=== PATIENT | male | born 1975 | race Caucasian/White ===

== ENCOUNTER 2025-08-25 17:56 | Inpatient (IN) | payer BC, SELFPAY ==
--- NOTE | ~2025-08-25 | CT_ITS ---
EXAMINATION: CT abdomen pelvis w con DATE: 08/25/2025 21:24 INDICATION: Epigastric pain, abdominal distention, bloating and belching. TECHNIQUE: Computed tomography (CT) of the abdomen and pelvis was performed with 100 mL Omnipaque-350 intravenous contrast. Automated exposure control and iterative reconstruction technique were employed. The dose-length product was 704.88 mGy-cm. COMPARISON: None FINDINGS: There are couple <3 mm nodules in the right lower lobe. Heart size is normal. No pericardial or pleural effusion. Diffuse hepatic steatosis with right hepatic lobe predominance. Gallbladder, spleen, bilateral adrenal glands and kidneys are normal. Prominent peripancreatic stranding centered at the head of the pancreas with small amount of nonloculated retroperitoneal fluid extending caudally along the anterior right pararenal space and into the pelvis consistent with acute interstitial pancreatitis. No loculated fluid collections, hemorrhage or nonenhancing regions of pancreatic necrosis. There are few sigmoid diverticula without adjacent comparison to suggest diverticular disease. Small bowel and appendix are normal. Bladder is normal. The region of the prostate is obscured by dense metallic streak artifact related to bilateral total hip arthroplasties. No free intraperitoneal gas or fluid. No pathologically enlarged abdominal or pelvic lymphadenopathy. Moderate to severe disc height loss at L5-S1. Mild spondylosis and more cephalad lumbar and lower thoracic spine. Chronic minimal likely physiologic anterior wedging at T11 and T12. IMPRESSION: 1. Acute interstitial pancreatitis. 2. Diffuse hepatic steatosis. Reviewed, dictated and finalized at location A. LING SUPERVISOR
--- NOTE | ~2025-08-25 | US_ITS ---
ULTRASOUND ABDOMEN LIMITED (RIGHT UPPER QUADRANT) Clinical History: pancreatitis Comparison: CT abdomen and pelvis one day prior Technique: Right upper quadrant sonography Findings: Liver: Enlarged. Echogenic. No intrahepatic biliary ductal dilatation. Normal hepatopedal flow main portal vein. Common Duct: Normal caliber. 5 mm. Gallbladder: No stones. No wall thickening. Focal fatty sparing versus pericholecystic fluid. Pancreas: Obscured by bowel gas. Right kidney: Unremarkable. Retrohepatic IVC: Unremarkable. IMPRESSION: 1. No acute findings. Reviewed, dictated and finalized at location R. URE FRAMER IMPRESSION: 1. No acute findings.
--- OUTSIDE RECORDS SUMMARY | 2025-08-25 17:58 | XMS_ITS ---
Author Organization Unknown ENCOUNTERS Encounter Performer Location Date Diagnosis Diagnosis Status Pre Admit [facility] [address] [place] [id number] *Note: Encounters from your own facility or health system may be excluded. Allergies, Adverse Reactions, Alerts Allergen Type Severity Identification Date Medications Name Date Quantity Days Supplied GPI Number
[2025-08-25 18:02] VITALS: BP 162/95; PULSE 103; RESP 18; TEMP 36.2; O2SAT 98
--- NOTE | 2025-08-25 19:08 | ED_ITS ---
HPI - Abdominal Pain General Chief Complaint: Abdominal Pain Stated Complaint: ABD PAIN X3D BLOATING Time Seen by Provider: 08/25/25 19:05 Source: patient and family ( Gregoria) Mode of arrival: ambulatory Limitations: no limitations History of Present Illness HPI narrative: Patient presents with report of 3-4 days of abdominal pain with distention and bloating. He notes very slight and intermittent nausea but no vomiting and states it is not oswald pain but rather just a feeling of a lot of discomfort. He had antacid as well as Pepcid yesterday and today and also took Pepto-Bismol yesterday and today. He has been urinating all day and trying to maintain his hydration. Last oral intake was approximately 10:00 a.m. when he had some plain oatmeal. He denies any fevers or chills. No previous abdominal surgeries although he did have a colonoscopy in November which was reportedly normal. He does not otherwise follow regularly with a coffee grinder and states that the symptoms have never occurred before. His last bowel movement was today and reportedly normal. He denies any diarrhea, constipation, bloody stools. He has been burping a lot and states that he believes he passed flatus 2 times all day. He is not on anticoagulation. He does not have an appetite which is unusual for him. His pain is approximately 2/10. He feels fatigued. The discomfort started his breast bone and then seemed to settle as epigastrium and has now started to radiate inferiorly. He takes AG1 (a supplement and tried this but without any change). 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 and July 2022 Family History Family History (Updated 08/26/25 @ 04:52 by David Mace RN) Father Hyperlipemia Hypertension Diabetes type 2 Skin cancer Mother Hyperlipemia Hypertension Skin cancer Social History Social History Social History: Resides in [place] Smoking status: Never smoker Alcohol intake: current Substance use: never Substance use type: does not use Lack of Transportation: No Lack of Food: Never True Current Housing: I Have Housing Concerned About Future Housing: No Difficulty Paying Gas/Electric Bills: No Difficulty Paying for Meds: No Currently Unemployed: No Education: Bachelor's Degree Difficulty w/ Childcare or Family Care: No Living arrangements: with family Spiritual care concerns: No Exam 2 Narrative: GENERAL: Well-appearing, well-nourished, and in no acute distress. HEAD: Normocephalic, atraumatic. EYES: Non injected, non icteric ENT: Nares clear, no rhinorrhea or epistaxis. Gross auditory acuity intact. NECK: Supple. No meningismus. CHEST: Speaking in full sentences. No respiratory distress. HEART: Mildly tachycardic rate and rhythm. ABDOMEN: Distended but soft. No rigidity or guarding. Not peritoneal EXTREMITIES: Normal range of motion. No lower extremity edema. SKIN: Warm, dry, no rash. NEURO: No focal deficits. Alert and oriented. Answering questions. Following commands. Normal speech without aphasia or dysarthria. Observed ambulating from the bathroom with steady gait. : Urine in collection container at bedside is dark/orange PSYCH: Normal mood and affect. Course Vital Signs Vital signs: Vital Signs Temperature 97.2 F L 08/25/25 18:02 Pulse Rate 103 H 08/25/25 18:02 Respiratory Rate 18 08/25/25 18:02 Blood Pressure 162/95 H 08/25/25 18:02 Pulse Oximetry 98 08/25/25 18:02 Oxygen Delivery Room Air 08/25/25 18:02 Temperature 97.1 F L 08/26/25 04:35 Pulse Rate 91 08/26/25 04:35 Respiratory Rate 16 08/26/25 04:35 Blood Pressure 152/82 H 08/26/25 04:35 Pulse Oximetry 97 08/26/25 04:35 Oxygen Delivery Room Air 08/26/25 05:39 MDM MDM Narrative Medical decision making narrative: 50-year-old male presents with abdominal pain and bloating of 3-4 days duration. Symptoms started at epigastrium and have been radiating inferiorly. In the emergency department he is afebrile with vital signs notable for hypertension and mild tachycardia. Simethicone and Reglan ordered as well as CT abdomen /Pelvis. Mild leukocytosis. Urinalysis with 1+ ketonuria and microscopic hematuria. 500cc IV fluids ordered. There is a delay in obtaining lab results as it apparently hemolyzes multiple times. Normal renal function. Mild hyponatremia. Mild Hyperglycemia wo anion gap or acidosis. Lipase is 1234, consistent with acute pancreatitis. Transaminitis with no prior for comparison. Pseudo hypocalcemia as it corrects to normal, 8.6 in the setting of his hypoalbuminemia. Additional 1L fluids ordered as is 2mg morphine. CT as below (there is significant delay in obtaining interpretation from [facility], multiple phone calls to rf test technician/department were made). RUQ US ordered for tomorrow morning although normal on CT. Patient denies any previous history of pancreatitis. He does note that he has been drinking alcohol recently. Discussed with Dr Paredes who accepts admission. IV fluids ordered at 200cc/hr. Differential Diagnosis Differential Diagnosis: Differential diagnostic considerations for acute abdominal pain?include surgical abdominal etiology, ischemic bowel, , gastritis, PUD, gastroenteritis, cardiac etiology, appendicitis, diverticulitis, bowel obstruction, pancreatitis, constipation. Less likely abdominal aortic aneurysm, kidney stone. Lab Data MDM Lab Attestation statement: I personally reviewed the patient's lab results. Lab results narrative: lactic acid normal 08/25/25 19:31 08/25/25 21:46 Labs: Lab Results 08/25/25 08/25/25 08/25/25 Range/Units 19:18 19:31 21:18 WBC 13.2 H (4.5-10.0) K/mm3 RBC 4.19 L (4.6-6.20) M/mm3 Hgb 14.0 (14.0-18.0) g/dL Hct 39.0 L (42.0-52.0) % MCV 93.1 (80-100) fl MCH 33.4 (26-34) pg MCHC 35.9 (32-36) g/dl RDW 13.2 (11.5-14.5) % Plt Count 157 (150-375) k/mm3 MPV 11.5 H (7.4-10.4) fl Immature Gran % (Auto) 0.6 H (0-0.5) % Neut % (Auto) 86.9 H (45.5-73.1) % Lymph % (Auto) 7.3 L (18.3-44.2) % [place] % (Auto) 3.2 (2.6-8.5) % Eos % (Auto) 1.7 (0-4.4) % Baso % (Auto) 0.3 (0.2-1.2) % Lymph # (Auto) 0.96 (0.9-3.2) K/mm3 [place] # (Auto) 0.4 (0.1-0.6) K/mm3 Eos # (Auto) 0.2 (0-0.3) K/mm3 Baso # (Auto) 0.0 (0.0-0.1) K/mm3 Abs Immat Gran (auto) 0.08 H (0.00-0.031) K/mm3 Absolute Neuts (auto) 11.5 H (1.3-6.7) K/mm3 Absolute Nucleated RBC 0.000 (0.0-0.012) K/mm3 Nucleated RBC % 0.0 (0.0-0.2) % % Immature Plt Fraction 5.8 (0.9-11.2) % Sodium (137-145) mmol/L Potassium (3.4-5.0) mmol/L Chloride (98-107) mmol/L Carbon Dioxide (22-30) mmol/L Anion Gap (4-12) mmol/L BUN (9-20) mg/dL Creatinine 0.60 L (0.8-1.5) mg/dL Estim Creat Clear Calc 121 ml/min Estimated GFR > 60 (59 - ) Glucose (65-110) mg/dL Lactic Acid 1.0 (0.7-2.0) mmol/L Calcium (8.4-10.2) mg/dL Magnesium (1.6-2.3) mg/dL Total Bilirubin (0.2-1.3) mg/dL AST (17-59) U/L ALT (6-50) U/L Alkaline Phosphatase (38-126) U/L Total Protein (6.3-8.2) g/dL Albumin (3.5-5.1) g/dL Lipase (23-300) U/L Urine Color Dark yellow (Yellow) Urine Appearance Clear (Clear) Urine pH 7.0 (5.0-9.0) Ur Specific [place] 1.010 (1.001-1.035) Urine Protein Trace (Negative) mg/dL Urine Glucose (UA) Negative (Negative) mg/dL Urine Ketones 1+ H (Negative) mg/dL Ur Blood (Man) Negative (Negative) Urine Nitrate Negative (Negative) Urine Bilirubin Negative (Negative) Urine Urobilinogen 1.0 (<2.0) mg/dL Leukocyte Esterase Rfl Negative (Negative) HARMEET/UL Urine RBC 3-5 H (0-2) /hpf Urine WBC 0-5 (0-3) /hpf Ur Squamous Epith Cells None seen (Few) /hpf Urine Bacteria None seen /hpf Urine Casts 0-2 08/25/25 Range/Units 21:46 WBC (4.5-10.0) K/mm3 RBC (4.6-6.20) M/mm3 Hgb (14.0-18.0) g/dL Hct (42.0-52.0) % MCV (80-100) fl MCH (26-34) pg MCHC (32-36) g/dl RDW (11.5-14.5) % Plt Count (150-375) k/mm3 MPV (7.4-10.4) fl Immature Gran % (Auto) (0-0.5) % Neut % (Auto) (45.5-73.1) % Lymph % (Auto) (18.3-44.2) % [place] % (Auto) (2.6-8.5) % Eos % (Auto) (0-4.4) % Baso % (Auto) (0.2-1.2) % Lymph # (Auto) (0.9-3.2) K/mm3 [place] # (Auto) (0.1-0.6) K/mm3 Eos # (Auto) (0-0.3) K/mm3 Baso # (Auto) (0.0-0.1) K/mm3 Abs Immat Gran (auto) (0.00-0.031) K/mm3 Absolute Neuts (auto) (1.3-6.7) K/mm3 Absolute Nucleated RBC (0.0-0.012) K/mm3 Nucleated RBC % (0.0-0.2) % % Immature Plt Fraction (0.9-11.2) % Sodium 133 L (137-145) mmol/L Potassium 4.2 (3.4-5.0) mmol/L Chloride 105 (98-107) mmol/L Carbon Dioxide 25 (22-30) mmol/L Anion Gap 3 L (4-12) mmol/L BUN 2 L (9-20) mg/dL Creatinine 0.56 L (0.8-1.5) mg/dL Estim Creat Clear Calc 129 ml/min Estimated GFR > 60 (59 - ) Glucose 145 H (65-110) mg/dL Lactic Acid (0.7-2.0) mmol/L Calcium 7.7 L (8.4-10.2) mg/dL Magnesium 1.7 (1.6-2.3) mg/dL Total Bilirubin 2.2 H (0.2-1.3) mg/dL AST 310 H (17-59) U/L ALT 215 H (6-50) U/L Alkaline Phosphatase 105 (38-126) U/L Total Protein 5.8 L (6.3-8.2) g/dL Albumin 2.9 L (3.5-5.1) g/dL Lipase 1234 H (23-300) U/L Urine Color (Yellow) Urine Appearance (Clear) Urine pH (5.0-9.0) Ur Specific [place] (1.001-1.035) Urine Protein (Negative) mg/dL Urine Glucose (UA) (Negative) mg/dL Urine Ketones (Negative) mg/dL Ur Blood (Man) (Negative) Urine Nitrate (Negative) Urine Bilirubin (Negative) Urine Urobilinogen (<2.0) mg/dL Leukocyte Esterase Rfl (Negative) HARMEET/UL Urine RBC (0-2) /hpf Urine WBC (0-3) /hpf Ur Squamous Epith Cells (Few) /hpf Urine Bacteria /hpf Urine Casts Imaging Data Radiologist's impression: ITS Impressions Abdomen/Pelvis CT 08/26/25 09:31 IMPRESSION: 1. Acute interstitial pancreatitis. 2. Diffuse hepatic steatosis. CT Stat Rad abd & Pelvis with contrast: Acute interstitial edematous pancreatitis. No evidence of parenchymal necrosis or denies collection. Associated ascites tracking inferiorly. Reactive inflammation of the duodenum. Hepatomegaly and steatosis. Incidental findings: Gallbladder, spleen, adrenal glands, kidneys are unremarkable. Normal appendix. No bowel obstruction. Portable pelvic organs. Bilateral total hip arthroplasties. No acute osseous findings. ECG Data EKG #1: Attestation: I personally reviewed and interpreted this ECG as follows: ECG completion date: 08/25/25 ECG completion time: 19:43 Prior ECG tracings: not available for review (no prior for comparison) Interpretation: Normal sinus rhythm at a rate of 93 beats per minute. NV interval 144. QRS 112. QT /QTC 341/424. Poor R-wave progression across the precordial leads. T- wave flattening in 3 but upright in contiguous inferior leads. No other T-wave inversions. Borderline left axis deviation given positive in 1 and negative in 3 and AVF and trending towards negative in 2. Moderate intraventricular conduction delay. Discharge Plan Discharge Clinical Impression: Leukocytosis, Bloated abdomen, Abdominal discomfort, epigastric, Hematuria, microscopic, Hyponatremia, Hyperglycemia, Transaminitis, Hypoalbuminemia, Interstitial pancreatitis, Hepatic steatosis Patient Disposition: Still a Patient Condition: Stable Time of Disposition: 02:28
--- NOTE | 2025-08-25 19:16 | ECG_ITS ---
Test Date: 2025-08-25 19:43:25 Measurements Intervals Venus Rate: 93 P: 57 SC: 144 QRS: -27 QRSD: 112 T: 33 QT: 341 QTc: 424 Interpretive Statements SINUS RHYTHM DELAYED PRECORDIAL R/S TRANSITION BORDERLINE ECG No previous ECG available for comparison Electronically Signed On 08-25-2025 20:35:28 WATER RESTORATION TECHNICIAN by Mario Tafoya D.O.
[2025-08-25 19:34] LABS: Add Urine Microscopic? YES; Appearance Urine Clear (Clear); Glucose Urine UA Negative (Negative); Leukocyte Esterase Ur Negative LEU/UL (Negative); Nitrate Urine Negative (Negative); Non Pathogenic Casts 0-2; Specific Grav Ur 1.010 (1.001-1.035)
[2025-08-25 19:42] LABS: Hematocrit 39.0 % (42.0-52.0); Hemoglobin 14.0 g/dL (14.0-18.0); Immature Granulocyte Percent A 0.6 % (0-0.5); Immature Platelet Fraction Pct 5.8 % (0.9-11.2); Lymphocytes Absolute Auto 0.96 K/mm3 (0.9-3.2); Mean Corpuscular HGB Conc 35.9 g/dl (32-36); Mean Corpuscular Hemoglobin 33.4 pg (26-34); Mean Corpuscular Volume 93.1 fl (80-100); Nucleated Red Blood Cells Absolute Auto 0.000 K/mm3 (0.0-0.012); Nucleated Red Blood Cells Perc 0.0 % (0.0-0.2); Platelet Count Result 157 k/mm3 (150-375); Red Blood Count 4.19 M/mm3 (4.6-6.20); White Blood Count 13.2 K/mm3 (4.5-10.0)
[2025-08-25] MEDS: SODIUM CHLORIDE 0.9% IV 500 ML 999 ML IV CONT (20:20)
[2025-08-25] MEDS: SIMETHICONE 125 MG CHEW TAB PO (20:21)
[2025-08-25] MEDS: METOCLOPRAMIDE HCL INJ 10 MG/2 ML VIAL 5 MG IV PUSH (20:23)
--- NOTE | 2025-08-25 21:06 | PC.NURSE ---
Lab reports hemolysis multiple times with lab draw. This RN re-jabari and sent labs at this time. Extra tube obtained and CT called for POC creatinine due to delay in imaging. Pt and significant other at bedside updated. Pt's stretcher laid back for comfort. Call light in reach.
[2025-08-25 21:20] LABS: Estimated CRCL calculation 121 ml/min; Estimated Glomerular Filt Rate > 60
[2025-08-25 22:10] LABS: Alanine Aminotransferase 215 U/L (6-50); Albumin Level 2.9 g/dL (3.5-5.1); Alkaline Phosphatase 105 U/L (38-126); Anion Gap 3 mmol/L (4-12); Aspartate Amino Transferase 310 U/L (17-59); Bilirubin,Total 2.2 mg/dL (0.2-1.3); Blood Urea Nitrogen 2 mg/dL (9-20); Calcium 7.7 mg/dL (8.4-10.2); Carbon Dioxide 25 mmol/L (22-30); Chloride 105 mmol/L (98-107); Estimated CRCL calculation 129 ml/min; Estimated Glomerular Filt Rate > 60; Glucose 145 mg/dL (65-110); Lipase 1234 U/L (23-300); Magnesium 1.7 mg/dL (1.6-2.3); Sodium 133 mmol/L (137-145); Total Protein 5.8 g/dL (6.3-8.2)
[2025-08-25 22:11] LABS: Potassium 4.2 mmol/L (3.4-5.0)
[2025-08-25] MEDS: SODIUM CHLORIDE 0.9% IV 1,000 ML 999 ML IV CONT (22:54)
[2025-08-25 22:56] VITALS: BP 136/81; PULSE 87; RESP 16; O2SAT 96
[2025-08-25] MEDS: MORPHINE SULFATE (*CRX) 4 MG/ML INJ 2 MG IV PUSH (23:41)
[2025-08-26] VITALS (12 sets, daily range): BP systolic 140–153; BP diastolic 82–94; PULSE 86–94; RESP 16–20; TEMP 36.2–36.7; O2SAT 94–98
[2025-08-26] MEDS: SODIUM CHLORIDE 0.9% IV 1,000 ML 200 ML IV CONT ×4 (02:39→20:58)
--- NOTE | 2025-08-26 04:01 | WPCEDHO ---
ED Hand Off Checklist All vitals saved: Yes IV Site documented: Yes All med administrations documented: Yes Triage Note Triage Note To ed with c/o abd pain and 08/25/25 18:02 bloating for the past 3 days. Nausea today. Last BM was today and normal for him. Allergies celecoxib (From Celebrex) Allergy (Intermediate, Verified 08/25/25 19:39) Hives Active Medications including assessments/comments Sodium Chloride (Normal Saline Iv) 1,000 mls @ 200 mls/hr IV CONT .Q5H PERRI Last Admin: 08/26/25 02:39 Dose: 200 mls/hr Documented By: GUILLERMO Infusion/Titration Document 08/26/25 02:39 GUILLERMO (Rec: 08/26/25 02:39 GUILLERMO [id number]) Intake IV Site Peripheral Access Right Forearm Container Volume 1,000 Waste Amount 0 Dosing Infusion Rate 200 Cumulative Dose Not Applicable Increase/Decrease Started Elapsed Time Elapsed Time ( 0m minutes) Administered/Completed Medications Discontinued Medications Sodium Chloride (Normal Saline Iv) 500 mls @ 999 mls/hr IV CONT .Q31M STA Stop: 08/25/25 20:29 Last Infusion: 08/25/25 21:05 Dose: Infused Documented By: Admin: 08/25/25 20:20 Dose: 999 mls/hr Documented By: ARCHIE Sodium Chloride (Normal Saline Iv) 1,000 mls @ 999 mls/hr IV CONT .Q1H1M STA Stop: 08/25/25 23:16 Last Infusion: 08/26/25 00:06 Dose: Infused Documented By: Admin: 08/25/25 22:54 Dose: 999 mls/hr Documented By: ARCHIE Metoclopramide HCl (Metoclopramide Hcl Inj 10 Mg/2 Ml Vial) 5 mg IV PUSH ONCE STA Stop: 08/25/25 19:16 Last Admin: 08/25/25 20:23 Dose: 5 mg Documented By: ARCHIE Morphine Sulfate (Morphine Sulfate (*Crx) 4 Mg/Ml Inj) 2 mg IV PUSH ONCE ONE Stop: 08/25/25 22:45 Last Admin: 08/25/25 23:41 Dose: 2 mg Documented By: GUILLERMO Simethicone (Simethicone 125 Mg Chew Tab) 125 mg PO ONCE STA Stop: 08/25/25 19:15 Last Admin: 08/25/25 20:21 Dose: 125 mg Documented By: ARCHIE Notes 08/25/25 21:06 Nurse Note by Ying Robledo Lab reports hemolysis multiple times with lab draw. This RN re-jabari and sent labs at this time. Extra tube obtained and CT called for POC creatinine due to delay in imaging. Pt and significant other at bedside updated. Pt's stretcher laid back for comfort. Call light in reach. Initialized on 08/25/25 21:06 - END OF NOTE Interventions/Assessments IV / Saline Lock, Insert Start: 08/25/25 18:45 Freq: STAT Status: Active Protocol: Document 08/25/25 19:37 KJT (Rec: 08/25/25 19:37 KJT [id number]) IV Assessment Peripheral Access Right Forearm IV Catheter Access Initiated IV Insertion Date 08/25/25 IV Insertion Time 19:37 Catheter Gauge 18 IV Insertion 1 Attempts Ultrasound Used for No Placement IV Site Assessment WNL IV Care and WNL Maintenance PA: Gastrointestinal Assessment Start: 08/25/25 17:58 Freq: Status: Active Protocol: Document 08/25/25 22:57 ARCHIE (Rec: 08/25/25 22:59 ARCHIE [id number]) GI Assessment Gastrointestinal Appetite Changes,Belching,Bloating,Hiccups,Pain Symptoms Description Soft Last Vital Signs Temperature 97.6 F 08/26/25 03:54 Pulse Rate 94 08/26/25 03:54 Respiratory Rate 18 08/26/25 03:54 Pulse Oximetry 94 08/26/25 03:54 Blood Pressure 148/93 H 08/26/25 03:54 Blood Pressure Mean 111 08/26/25 03:54 Blood Pressure Position Sitting 08/25/25 22:56 Oxygen Delivery Room Air 08/25/25 18:02 Weight 82.6 kg 08/25/25 18:02 Last Result - Abnormals Only WBC 13.2 K/mm3 (4.5-10.0) H 08/25/25 19:31 RBC 4.19 M/mm3 (4.6-6.20) L 08/25/25 19:31 Hct 39.0 % (42.0-52.0) L 08/25/25 19:31 MPV 11.5 fl (7.4-10.4) H 08/25/25 19:31 Immature Gran % (Auto) 0.6 % (0-0.5) H 08/25/25 19:31 Neut % (Auto) 86.9 % (45.5-73.1) H 08/25/25 19:31 Lymph % (Auto) 7.3 % (18.3-44.2) L 08/25/25 19:31 Abs Immat Gran (auto) 0.08 K/mm3 (0.00-0.031) H 08/25/25 19:31 Absolute Neuts (auto) 11.5 K/mm3 (1.3-6.7) H 08/25/25 19:31 Sodium 133 mmol/L (137-145) L 08/25/25 21:46 Anion Gap 3 mmol/L (4-12) L 08/25/25 21:46 BUN 2 mg/dL (9-20) L 08/25/25 21:46 Creatinine 0.56 mg/dL (0.7-1.3) L 08/25/25 21:46 Glucose 145 mg/dL (65-110) H 08/25/25 21:46 Calcium 7.7 mg/dL (8.4-10.2) L 08/25/25 21:46 Total Bilirubin 2.2 mg/dL (0.2-1.3) H 08/25/25 21:46 AST 310 U/L (17-59) H 08/25/25 21:46 ALT 215 U/L (6-50) H 08/25/25 21:46 Total Protein 5.8 g/dL (6.3-8.2) L 08/25/25 21:46 Albumin 2.9 g/dL (3.5-5.1) L 08/25/25 21:46 Lipase 1234 U/L (23-300) H 08/25/25 21:46 Urine Ketones 1+ mg/dL (Negative) H 08/25/25 19:18 Urine RBC 3-5 /hpf (0-2) H 08/25/25 19:18 Most Recent Suicide Severity Rating Suicide Severity Rating NO RISK INDICATED 08/25/25 18:02
[2025-08-26] MEDS: ACETAMINOPHEN 325 MG TABLET 650 MG PO ×4 (05:07→20:59)
--- NOTE | 2025-08-26 05:45 | PC.NURSE ---
Notified Dr. Paredes regarding New Sepsis Risk. No new orders given.
--- NOTE | 2025-08-26 06:44 | P.HP_ITS ---
H&P: HPI History of Present Illness Date/Time: 08/26/25 06:44 Chief Complaint: epigastric abdominal pain Narrative: Patient is a 50 yo male with no significant past medical history who presented to the ER with complaints of epigastric abdominal pain, nausea. History is obtained from patient as well as at bedside. Patient states his symptoms began about 5 days ago. Describes the pain as a sharp/bloating feeling that started in his epigastrium/substernal area and now has moved to his right upper quadrant. Denies radiation to the back or shoulder. Currently rates the pain about 3/10 in severity however states he does have a high pain tolerance. Has associated nausea with no vomiting. Also reported increased belching. Last bowel movement was yesterday which was a small formed stool. Reports a low- grade fever yesterday associated with chills. Currently denies chest pain, shortness of breath, nausea, dysuria. He does admit to eating more rich/fatty meals over the last couple of weeks due to the holidays and work events. Also admits to heavier alcohol use over the last 6-8 weeks stating he drinks about 3 shots of scotch daily. Also reported he started a new [facility] testosterone boosting supplement in the last 2 months. No other new medications. Denies smoking or other drug use. Denies prior history of pancreatitis or gallbladder issues. Pain has improved with IV fluids, NPO status and IV morphine. In the ED, WBC 13.2, sodium 133, calcium 7.7, T bili 2.2, AST 310, ALT 215, albumin 2.9, lipase 1234. UA with 1+ ketones, 3-[address] A/P shows hepatic steatosis and acute interstitial pancreatitis. Patient admitted for further evaluation and management of acute pancreatitis. Review of Systems Review of Systems: All systems reviewed & are unremarkable except as noted in HPI and below [facility] Surgical History Surgical History History of colonoscopy November 2024 H/O bilateral hip replacements January 2022 and July 2022 Family History Family History (Updated 08/26/25 @ 04:52 by David Mace RN) Father Hyperlipemia Hypertension Diabetes type 2 Skin cancer Mother Hyperlipemia Hypertension Skin cancer Social History Social History Social History: Resides in [place] Smoking status: Never smoker Alcohol intake: current Substance use: never Substance use type: does not use Lack of Transportation: No Lack of Food: Never True Current Housing: I Have Housing Concerned About Future Housing: No Difficulty Paying Gas/Electric Bills: No Difficulty Paying for Meds: No Currently Unemployed: No Education: Bachelor's Degree Difficulty w/ Childcare or Family Care: No Living arrangements: with family Spiritual care concerns: No Meds Home Medications and Allergies Home Medications ?Medication ?Instructions ?Recorded ?Confirmed ?Type allopurinol 300 mg tablet 300 mg PO DAILY 08/26/25 History finasteride 1 mg tablet 1 mg PO DAILY 08/26/2508/26 History minoxidil 2.5 mg tablet 2.5 mg PO DAILY 08/26/25 History zolpidem 5 mg tablet (Ambien) 5 mg PO HS 08/26/2508/02 History Allergies Allergy/AdvReac Type Severity Reaction Status Date / Time celecoxib (From Celebrex) Allergy Intermediate Hives Verified 08/26/25 04:38 Vital Signs Vital Signs - 24 hr 08/25/25 18:02 08/25/25 22:56 08/26/25 00:12 Temperature 97.2 F L Pulse Rate 103 H 87 Respiratory Rate 18 16 Blood Pressure 162/95 H 136/81 Pulse Oximetry 98 96 95 Oxygen Delivery Room Air 08/26/25 00:15 08/26/25 00:31 08/26/25 00:53 Temperature Pulse Rate Respiratory Rate Blood Pressure Pulse Oximetry 95 95 95 Oxygen Delivery 08/26/25 01:01 08/26/25 01:27 08/26/25 02:45 Temperature Pulse Rate 86 90 Respiratory Rate 18 20 Blood Pressure 142/94 H 140/86 Pulse Oximetry 95 97 95 Oxygen Delivery 08/26/25 03:54 08/26/25 04:03 08/26/25 04:35 Temperature 97.6 F 98.0 F 97.1 F L Pulse Rate 94 93 91 Respiratory Rate 18 18 16 Blood Pressure 148/93 H 146/93 H 152/82 H Pulse Oximetry 94 96 97 Oxygen Delivery 08/26/25 05:39 Temperature Pulse Rate Respiratory Rate Blood Pressure Pulse Oximetry Oxygen Delivery Room Air Exam Narrative: General: NAD Eyes: EOMI ENT: neck supple Cardiovascular: Regular rate and rhythm Respiratory: Clear to auscultation, respirations even and unlabored on RA Gastrointestinal: moderately distended, mild tenderness in the epigastrium and RUQ. No rebound or guarding. Negative Paige's sign. Genitourinary: no suprapubic tenderness Musculoskeletal: No edema Skin: warm, dry Neuro: Alert. Psych: Mood appropriate Results Labs Labs: Short CBC 08/25/25 Range/Units 19:31 WBC 13.2 H (4.5-10.0) K/mm3 Hgb 14.0 (14.0-18.0) g/dL Hct 39.0 L (42.0-52.0) % Plt Count 157 (150-375) k/mm3 BMP 08/25/25 08/25/25 21:18 21:46 Sodium 133 L Potassium 4.2 Chloride 105 Carbon Dioxide 25 BUN 2 L Creatinine 0.60 L 0.56 L Glucose 145 H Calcium 7.7 L Liver Function 08/25/25 Range/Units 21:46 Total Bilirubin 2.2 H (0.2-1.3) mg/dL AST 310 H (17-59) U/L ALT 215 H (6-50) U/L Alkaline Phosphatase 105 (38-126) U/L Albumin 2.9 L (3.5-5.1) g/dL Urine 08/25/25 Range/Units 19:18 Urine Color Dark yellow (Yellow) Urine Appearance Clear (Clear) Urine pH 7.0 (5.0-9.0) Ur Specific [place] 1.010 (1.001-1.035) Urine Protein Trace (Negative) mg/dL Urine Glucose (UA) Negative (Negative) mg/dL Quality VTE Prophylaxis VTE prophylaxis: mechanical ordered Assessment and Plan Assessment and plan (1) Acute pancreatitis: Code(s): K85.90 - Acute pancreatitis without necrosis or infection, unspecified Assessment and Plan: - presented with epigastric abdominal pain, nausea/vomiting - lipase 1234. Elevated LFTs as below - CT A/P with hepatic steatosis, acute interstitial pancreatitis - suspect alcoholic vs. gallstone pancreatitis - continue aggressive IV fluids - NPO with ice chips - PRN pain control and antiemetics - RUQ US pending. May benefit from MRCP. - GI consulted, appreciate recs (2) Transaminitis: Code(s): R74.01 - Elevation of levels of liver transaminase levels Status: Acute Assessment and Plan: - t bili 2.2, AST 310, ALT 215. Recheck pending. - check hepatitis panel, GGT - could be related to alcohol versus obstructive - RUQ US pending. May benefit from MRCP (3) Leukocytosis: Code(s): D72.829 - Elevated white blood cell count, unspecified Status: Acute Assessment and Plan: - WBC 13 - likely related to acute pancreatitis, no signs of bacterial process - monitor off antibiotics (4) Gout: Code(s): M10.9 - Gout, unspecified Status: Acute Assessment and Plan: - hold allopurinol while NPO (5) Insomnia: Code(s): G47.00 - Insomnia, unspecified Status: Acute Assessment and Plan: - hold ambien while NPO Plan DVT prophylaxis: SCDs Code status: full code, confirmed on admit Dispo: home pending clinical course Prior Studies I have reviewed the following patient records and this information was taken into consideration when formulating the assessment and plan.: previous labs Consultations Consultations: I have discussed the care of this pt with the consulting providers. (JILL Vazquez [employer]) Hospitalist MIPS Advance Care Plan I have confirmed that the patient's Advanced Care Plan is present, code status is documented, or surrogate decision maker is listed in patient medical record.: Yes Medication Reconciliation I have utilized all available resources to obtain, update and review the pat ients current medications (includes all prescriptions, OTC, herbals, cannabis, and nutritional supplements).: Yes The patient is not eligible for med reconciliation; the patient is in a emergent medical situation where delaying treatment would jeopardize the patients health.: No
--- NOTE | 2025-08-26 10:35 | WPDGICN ---
Assessment and Plan Assessment and plan (1) Interstitial pancreatitis: Code(s): K86.1 - Other chronic pancreatitis Status: Acute (2) Elevated LFTs: Code(s): R79.89 - Other specified abnormal findings of blood chemistry Status: Acute (3) Decreased appetite: Code(s): R63.0 - Anorexia Status: Acute (4) Epigastric pain: Code(s): R10.13 - Epigastric pain Status: Acute (5) Hepatic steatosis: Code(s): K76.0 - Fatty (change of) liver, not elsewhere classified Status: Acute (6) Constipation: Qualifiers: Constipation type: unspecified constipation type Qualified Code(s): K59.00 - Constipation, unspecified Code(s): K59.00 - Constipation, unspecified Status: Acute (7) Bloated abdomen: Code(s): R14.0 - Abdominal distension (gaseous) Status: Acute Plan 1. Pancreatitis /elevated LFT's/ abdominal pain/appetite loss: Patient with complaints of epigastric pain that moved to his lower abdomen, lower pain and was more associated with constipation and bloating. Prior to admission the patient had tried Pepcid in Pepto-Bismol without any significant change in symptoms. Patient admits to appetite loss that has been occurring since 19/12. He states that yesterday all he had to eat was a small bowl of cereal. Previous complaints of epigastric pain has resolved since admission. CT on admission showed acute interstitial pancreatitis. Ultrasound done today showed liver enlargement but no intrahepatic biliary dilation, CBD normal at 5 mm. Pancreas was not visualized due to it being obscured by bowel gas. LFT's elevated but relatively stable since admission showing total bilirubin 2.2-->2.3, AST 310--> 287, Alk-Phos 215-->101. Hepatitis panel negative. Lipase on admission yesterday at 1234. Symptoms that would be present with pancreatitis have resolved and his main complaints in bloating. He denies any recent medication changes other than since starting [employer] that he has been using intermittently over the past few months. Recheck lipase and LFT's in AM currently on clear liquid diet, ok to advance if tolerated 2. Hepatic steatosis/Elevated LFT's: CT on admission showed hepatic steatosis. Ultrasound showed hepatomegaly but no other abnormal liver findings. Patient denies any prior history of elevated LFTs. trend and if no improvement may consider additional liver work up or MRCP Weight loss, healthy eating, cholesterol control, blood sugar control and exercise recommended. Patient should follow-up with his PCP once he arrives back home for monitoring 3. Constipation/bloating: Patient states that he typically has a daily bowel movement that is formed and not urgent but recently he has been having constipation and bloating. He currently takes no medications for constipation. He states that earlier today his pain was more in his lower abdomen and was associated with his abdominal bloating. Start MiraLax b.i.d. Start simethicone 250 mg b.i.d. If no improvement will consider magnesium citrate or GoLYTELY for a bowel cleanout Thank you very much for allowing me to share in the care of this very nice patient. This report may have been done utilizing a voice recognition system. Attempts have been made to correct errors. However, there may be uncorrected grammatical, spelling, and recognition errors present. GI Consult Note Consult date/time: 08/26/25 10:35 Reason for consult: Pancreatitis HPI: Brendon Perez is a 50 year old male with PMSH of bilateral hip replacement but otherwise unremarkable medical surgical history. He presented to the ER today with complaints of abdominal bloating in that had been occurring for a few days. GI has been consulted for pancreatitis. Patient was seen with his Gregoria at his bedside throughout the entire visit. Patient presents with report of 3-4 days of abdominal pain with distention and bloating. He notes very slight and intermittent nausea but no vomiting and states it is not oswald pain but rather just a feeling of a lot of discomfort. Prior to admission he had tried Prilosec and Pepto-Bismol without any significant improvement of symptoms. Patient states that his pain started in his epigastric region and then spread down to his lower abdomen. This pain is worse with constipation and bloating. He states that he is now only having pain on his right side and he describes it as a tenderness. He admits to a decreased appetite since the . He denies any odynophagia, dysphagia, reflux, regurgitation, early satiety or unexplained weight loss. Patient states that he normally has daily bowel movements that are formed and not urgent but has been experiencing constipation recently he states that his last bowel movement yesterday was small and incomplete. Denies diarrhea, hematochezia or melena. Patient has been taking Aleve once daily x6 years but denies any aspirin or anticoagulant use. He is a social drinker and denies any tobacco or marijuana use. Family history negative for GI cancers or IBD. ENDOSCOPY HISTORY: EGD: Patient has never had an EGD COLONOSCOPY: Per patient he had a colonoscopy in November of 2024 in [place] where he resides per patient scope was unremarkable LABS AND STOOL STUDIES: Labs 08/26/2025: Sodium 133, potassium 4.2, BUN 2, creatinine 0.56, GFR >60, calcium 7.7 WBC 13, Hgb 14, Hct 39, MCV 93, platelets 157 Total bilirubin 2.2, AST 310, ALT 215, Alkaline Phos 105, albumin 2.9, lipase 1234 IMAGING: CT abd/pelvis w/contrast 08/26/2025: FINDINGS: There are couple <3 mm nodules in the right lower lobe. Heart size is normal. No pericardial or pleural effusion. Diffuse hepatic steatosis with right hepatic lobe predominance. Gallbladder, spleen, bilateral adrenal glands and kidneys are normal. Prominent peripancreatic stranding centered at the head of the pancreas with small amount of nonloculated retroperitoneal fluid extending caudally along the anterior right pararenal space and into the pelvis consistent with acute interstitial pancreatitis. No loculated fluid collections, hemorrhage or nonenhancing regions of pancreatic necrosis. There are few sigmoid diverticula without adjacent comparison to suggest diverticular disease. Small bowel and appendix are normal. Bladder is normal. The region of the prostate is obscured by dense metallic streak artifact related to bilateral total hip arthroplasties. No free intraperitoneal gas or fluid. No pathologically enlarged abdominal or pelvic lymphadenopathy. Moderate to severe disc height loss at L5-S1. Mild spondylosis and more cephalad lumbar and lower thoracic spine. Chronic minimal likely physiologic anterior wedging at T11 and T12. IMPRESSION: 1. Acute interstitial pancreatitis. 2. Diffuse hepatic steatosis. Abdominal Ultrasound 08/26/2025: Findings: Liver: Enlarged. Echogenic. No intrahepatic biliary ductal dilatation. Normal hepatopedal flow main portal vein. Common Duct: Normal caliber. 5 mm. Gallbladder: No stones. No wall thickening. Focal fatty sparing versus pericholecystic fluid. Pancreas: Obscured by bowel gas. Right kidney: Unremarkable. Retrohepatic IVC: Unremarkable. IMPRESSION: 1. No acute findings. Review of Systems Constitutional: Constitutional: Reports as per HPI ENT: Reports as per HPI Cardiovascular: Cardiovascular: Reports as per HPI, Denies chest pain and Denies dyspnea Respiratory: Respiratory: Denies cough and Denies dyspnea Gastrointestinal: Gastrointestinal: Reports as per HPI Musculoskeletal: Musculoskeletal: Reports as per HPI Integumentary/Breasts: Skin/Breast: Reports as per HPI Psychiatric: Psychiatric: Reports as per HPI Endocrine: Endocrine: Reports no additional endocrine complaints Hematologic/Lymphatic: Hematologic/Lymphatic: Reports no additional hematologic/lymphatic complaints [facility] Surgical History Surgical History History of colonoscopy November 2024 H/O bilateral hip replacements January 2022 and July 2022 Family History Family History (Updated 08/26/25 @ 04:52 by David Mace RN) Father Hyperlipemia Hypertension Diabetes type 2 Skin cancer Mother Hyperlipemia Hypertension Skin cancer Social History Social History Social History: Resides in [place] Smoking status: Never smoker Alcohol intake: current Substance use: never Substance use type: does not use Lack of Transportation: No Lack of Food: Never True Current Housing: I Have Housing Concerned About Future Housing: No Difficulty Paying Gas/Electric Bills: No Difficulty Paying for Meds: No Currently Unemployed: No Education: Bachelor's Degree Difficulty w/ Childcare or Family Care: No Living arrangements: with family Spiritual care concerns: No Meds Home Medications and Allergies Home Medications ?Medication ?Instructions ?Recorded ?Confirmed ?Type allopurinol 300 mg tablet 300 mg PO DAILY 08/26/25 08/26/25 History finasteride 1 mg tablet 1 mg PO DAILY 08/26/25 08/26/25 History minoxidil 2.5 mg tablet 2.5 mg PO DAILY 08/26/25 08/26/25 History zolpidem 5 mg tablet (Ambien) 5 mg PO HS 08/26/25 08/26/25 History Allergies Allergy/AdvReac Type Severity Reaction Status Date / Time celecoxib (From Celebrex) Allergy Intermediate Hives Verified 08/26/25 04:38 Vital Signs Vital Signs - 24 hr 08/25/25 18:02 08/25/25 22:56 08/26/25 00:12 Temperature 97.2 F L Pulse Rate 103 H 87 Respiratory Rate 18 16 Blood Pressure 162/95 H 136/81 Pulse Oximetry 98 96 95 Oxygen Delivery Room Air 08/26/25 00:15 08/26/25 00:31 08/26/25 00:53 Temperature Pulse Rate Respiratory Rate Blood Pressure Pulse Oximetry 95 95 95 Oxygen Delivery 08/26/25 01:01 08/26/25 01:27 08/26/25 02:45 Temperature Pulse Rate 86 90 Respiratory Rate 18 20 Blood Pressure 142/94 H 140/86 Pulse Oximetry 95 97 95 Oxygen Delivery 08/26/25 03:54 08/26/25 04:03 08/26/25 04:35 Temperature 97.6 F 98.0 F 97.1 F L Pulse Rate 94 93 91 Respiratory Rate 18 18 16 Blood Pressure 148/93 H 146/93 H 152/82 H Pulse Oximetry 94 96 97 Oxygen Delivery 08/26/25 05:39 Temperature Pulse Rate Respiratory Rate Blood Pressure Pulse Oximetry Oxygen Delivery Room Air Exam Const: General: cooperative, healthy appearing, comfortable, no acute distress and well developed Orientation/consciousness: oriented to person, oriented to place, oriented to time and patient oriented x3 HENMT: Head: normal to inspection, normocephalic and atraumatic Mouth: Yes Normal oral and palatal mucosa present and Yes moist mucous membranes Eyes: General: appearance normal, both eyes and all related structures Conjunctivae: conjunctivae normal Sclera: sclerae normal Pupils: Equal, round and reactive pupils present Neck: Neck: normal visual inspection Chest: Chest palpation & inspection: normal inspection of the chest Resp: Effort & Inspection: normal respiratory effort and able to speak in complete sentences Auscultation: clear to auscultation bilaterally Cardio: Jugular venous distension: no JVD Rate: regular rate Rhythm: regular rhythm Heart sounds: S1 normal heart sound present and S2 normal heart sound present GI: Inspection: normal to inspection GI Palp: Yes Soft to palpation and Yes No hepatosplenomegaly present Auscultation: normal bowel sounds Rectal Exam: deferred Skin: General skin exam: normal color and no rashes or lesions noted Neuro: General: oriented to person, oriented to place, oriented to time and patient oriented x3 Cranial nerves: Yes Equal, round and reactive pupils present Speech: normal speech Extrem: General: normal to inspection and no clubbing, cyanosis or edema Psych: Appearance: grossly normal and well kempt Affect: normal affect Results Labs 08/26/25 11:17 08/26/25 11:17 Labs: Short CBC 08/25/25 Range/Units 19:31 WBC 13.2 H (4.5-10.0) K/mm3 Hgb 14.0 (14.0-18.0) g/dL Hct 39.0 L (42.0-52.0) % Plt Count 157 (150-375) k/mm3 BMP 08/25/25 08/25/25 21:18 21:46 Sodium 133 L Potassium 4.2 Chloride 105 Carbon Dioxide 25 BUN 2 L Creatinine 0.60 L 0.56 L Glucose 145 H Calcium 7.7 L Liver Function 08/25/25 Range/Units 21:46 Total Bilirubin 2.2 H (0.2-1.3) mg/dL AST 310 H (17-59) U/L ALT 215 H (6-50) U/L Alkaline Phosphatase 105 (38-126) U/L Albumin 2.9 L (3.5-5.1) g/dL Urine 08/25/25 Range/Units 19:18 Urine Color Dark yellow (Yellow) Urine Appearance Clear (Clear) Urine pH 7.0 (5.0-9.0) Ur Specific [place] 1.010 (1.001-1.035) Urine Protein Trace (Negative) mg/dL Urine Glucose (UA) Negative (Negative) mg/dL
[2025-08-26 11:34] LABS: Hematocrit 40.6 % (42.0-52.0); Hemoglobin 13.5 g/dL (14.0-18.0); Immature Granulocyte Percent A 0.8 % (0-0.5); Immature Platelet Fraction Pct 6.9 % (0.9-11.2); Lymphocytes Absolute Auto 0.71 K/mm3 (0.9-3.2); Mean Corpuscular HGB Conc 33.3 g/dl (32-36); Mean Corpuscular Hemoglobin 32.4 pg (26-34); Mean Corpuscular Volume 97.4 fl (80-100); Nucleated Red Blood Cells Absolute Auto 0.000 K/mm3 (0.0-0.012); Nucleated Red Blood Cells Perc 0.0 % (0.0-0.2); Platelet Count Result 116 k/mm3 (150-375); Red Blood Count 4.17 M/mm3 (4.6-6.20); White Blood Count 11.1 K/mm3 (4.5-10.0)
[2025-08-26 12:06] LABS: Alanine Aminotransferase 214 U/L (6-50); Albumin Level 3.4 g/dL (3.5-5.1); Alkaline Phosphatase 101 U/L (38-126); Anion Gap 5 mmol/L (4-12); Aspartate Amino Transferase 287 U/L (17-59); Bilirubin,Total 2.3 mg/dL (0.2-1.3); Blood Urea Nitrogen 4 mg/dL (9-20); Calcium 8.1 mg/dL (8.4-10.2); Carbon Dioxide 26 mmol/L (22-30); Chloride 107 mmol/L (98-107); Estimated CRCL calculation 133 ml/min; Estimated Glomerular Filt Rate > 60; Glucose 125 mg/dL (65-110); Potassium 4.2 mmol/L (3.4-5.0); Sodium 138 mmol/L (137-145); Total Protein 6.9 g/dL (6.3-8.2)
[2025-08-26 12:23] LABS: Hepatitis B Surface Antigen Negative (Negative)
[2025-08-26 12:29] LABS: HAV RESULT Negative (Negative); Hepatitis B Core IgM Result Negative (Negative)
[2025-08-26] MEDS: SIMETHICONE 125 MG CHEW TAB 250 MG PO (17:36)
[2025-08-27 05:42] VITALS: BP 149/79; PULSE 93; RESP 16; TEMP 37.6; O2SAT 95
[2025-08-27] MEDS: SODIUM CHLORIDE 0.9% IV 1,000 ML 200 ML IV CONT (05:57)
[2025-08-27 06:50] LABS: Hematocrit 37.3 % (42.0-52.0); Hemoglobin 12.2 g/dL (14.0-18.0); Immature Granulocyte Percent A 0.9 % (0-0.5); Immature Platelet Fraction Pct 7.5 % (0.9-11.2); Lymphocytes Absolute Auto 0.89 K/mm3 (0.9-3.2); Mean Corpuscular HGB Conc 32.7 g/dl (32-36); Mean Corpuscular Hemoglobin 31.6 pg (26-34); Mean Corpuscular Volume 96.6 fl (80-100); Nucleated Red Blood Cells Absolute Auto 0.000 K/mm3 (0.0-0.012); Nucleated Red Blood Cells Perc 0.0 % (0.0-0.2); Platelet Count Result 130 k/mm3 (150-375); Red Blood Count 3.86 M/mm3 (4.6-6.20); White Blood Count 10.9 K/mm3 (4.5-10.0)
[2025-08-27 07:08] LABS: GGT 849 IU/L (0-65)
[2025-08-27 07:12] LABS: Alanine Aminotransferase 166 U/L (6-50); Albumin Level 3.3 g/dL (3.5-5.1); Alkaline Phosphatase 118 U/L (38-126); Anion Gap 6 mmol/L (4-12); Aspartate Amino Transferase 147 U/L (17-59); Bilirubin,Total 1.6 mg/dL (0.2-1.3); Blood Urea Nitrogen 2 mg/dL (9-20); Calcium 8.5 mg/dL (8.4-10.2); Carbon Dioxide 26 mmol/L (22-30); Chloride 106 mmol/L (98-107); Estimated CRCL calculation 119 ml/min; Estimated Glomerular Filt Rate > 60; Glucose 127 mg/dL (65-110); Lipase 282 U/L (23-300); Potassium 3.6 mmol/L (3.4-5.0); Sodium 138 mmol/L (137-145); Total Protein 6.7 g/dL (6.3-8.2)
[2025-08-27] MEDS: ACETAMINOPHEN 325 MG TABLET 650 MG PO (10:08)
[2025-08-27] MEDS: SIMETHICONE 125 MG CHEW TAB 250 MG PO (10:08)
--- NOTE | 2025-08-27 11:42 | WPDGIPROGNO ---
Progress Note: A&P Assessment and Plan (1) Epigastric pain: Code(s): R10.13 - Epigastric pain Status: Acute (2) Hepatic steatosis: Code(s): K76.0 - Fatty (change of) liver, not elsewhere classified Status: Acute (3) Interstitial pancreatitis: Code(s): K86.1 - Other chronic pancreatitis Status: Acute Plan 50-year-old male who came to the hospital because of abdominal pain, constipation. Patient was found to have acute pancreatitis. Ultrasound of the gallbladder showed no stones. Patient admits to drinking alcohol heavily over the last few weeks. Clinically he is improving and he tolerated a clear liquid diet very well. Plan 1. Increase diet as tolerated. If there is no pain, patient will be able to go home with a follow-up in the office in about 2-3 weeks. Time Spent With Patient Time: 25 minute. Subjective Date/time seen: 08/27/25 11:42 Interval history: Patient feels better. He tolerated clear liquid diet very well. No abdominal pain. He had a bowel movement. Review of Systems Review of Systems: 11 review of symptoms on negative except the 1 mentioned in the H&P. Constitutional: Comments: His physical examination is unremarkable Objective Data Vital Signs Vital Signs: Vital Signs - 24 hr 08/26/25 14:00 08/26/25 20:00 08/26/25 21:19 Temperature 98 F 97.7 F Pulse Rate 94 93 Respiratory Rate 17 16 Blood Pressure 145/94 H 153/85 H Pulse Oximetry 97 98 Oxygen Delivery Room Air 08/27/25 05:42 Temperature 99.6 F Pulse Rate 93 Respiratory Rate 16 Blood Pressure 149/79 H Pulse Oximetry 95 Oxygen Delivery Intake/Output Intake/Output: Intake & Output 08/24/25 08/25/25 08/26/25 08/27/25 23:59 23:59 23:59 23:59 Intake Total 500 3926.7 1660 Balance 500 3926.7 1660 Meds/Results Medications: Active Medications Generic Name Dose Route Start Last Admin Trade Name Freq PRN Reason Stop Dose Admin Acetaminophen 650 mg 08/26/25 02:28 08/27/25 10:08 Acetaminophen 325 Mg Tablet PO 650 mg Q4H PRN Administration Mild Pain (1-3) or Fever Sodium Chloride 1,000 mls @ 125 mls/hr 08/26/25 02:30 08/27/25 05:57 Normal Saline Iv IV CONT 200 mls/hr .Q8H PERRI Administration Morphine Sulfate 2 mg 08/26/25 02:28 Morphine Sulfate (*Crx) 4 Mg/Ml Inj IV PUSH Q2H PRN Pain Rated 7-10 Ondansetron HCl 4 mg 08/26/25 02:28 Ondansetron Inj 4 Mg/2 Ml Vial IV PUSH Q4H PRN Nausea Polyethylene Glycol 17 gm 08/26/25 18:00 08/27/25 10:09 Polyethylene Glycol 3350 17 Gm Powd.Pack PO 17 gm BID PERRI Administration Simethicone 250 mg 08/26/25 18:00 08/27/25 10:08 Simethicone 125 Mg Chew Tab PO 250 mg BID PERRI Administration Radiology Results: ITS Impressions Abdomen/Pelvis CT 08/26/25 09:31 IMPRESSION: 1. Acute interstitial pancreatitis. 2. Diffuse hepatic steatosis. Abdomen Ultrasound 08/26/25 12:22 IMPRESSION: 1. No acute findings. Labs Labs: Laboratory Results - last 24 hr 08/26/25 08/27/25 11:17 05:34 WBC 10.9 H RBC 3.86 L Hgb 12.2 L Hct 37.3 L MCV 96.6 MCH 31.6 MCHC 32.7 RDW 13.4 Plt Count 130 L MPV 11.4 H Immature Gran % (Auto) 0.9 H Neut % (Auto) 81.5 H Lymph % (Auto) 8.2 L [place] % (Auto) 6.5 Eos % (Auto) 2.7 Baso % (Auto) 0.2 Lymph # (Auto) 0.89 L [place] # (Auto) 0.7 H Eos # (Auto) 0.3 Baso # (Auto) 0.0 Abs Immat Gran (auto) 0.10 H Absolute Neuts (auto) 8.9 H Absolute Nucleated RBC 0.000 Nucleated RBC % 0.0 % Immature Plt Fraction 7.5 Sodium 138 138 Potassium 4.2 3.6 Chloride 107 106 Carbon Dioxide 26 26 Anion Gap 5 6 BUN 4 L 2 L Creatinine 0.54 L 0.61 L Estim Creat Clear Calc 133 119 Estimated GFR > 60 > 60 Glucose 125 H 127 H Calcium 8.1 L 8.5 Total Bilirubin 2.3 H 1.6 H Direct Bilirubin 0.0 GGT 849 H AST 287 H 147 H ALT 214 H 166 H Alkaline Phosphatase 101 118 Total Protein 6.9 6.7 Albumin 3.4 L 3.3 L Lipase 282 Hepatitis A IgM Ab Negative Hep Bs Antigen Negative Hep B Core IgM Ab Negative Hepatitis C Ab Screen Negative
--- NOTE | 2025-08-27 13:43 | P.DS_ITS ---
DS: Admitting Diagnosis Discharge Date 08/27/25 Admitting Diagnosis - acute interstitial pancreatitis - transaminitis DS: Discharge Diagnosis Discharge Diagnosis (1) Acute pancreatitis: Code(s): K85.90 - Acute pancreatitis without necrosis or infection, unspecified (2) Transaminitis: Code(s): R74.01 - Elevation of levels of liver transaminase levels Status: Acute (3) Leukocytosis: Code(s): D72.829 - Elevated white blood cell count, unspecified Status: Acute (4) Gout: Code(s): M10.9 - Gout, unspecified Status: Acute (5) Insomnia: Code(s): G47.00 - Insomnia, unspecified Status: Acute DS: Summary Hospital Course Reason for hospitalization: - acute interstitial pancreatitis - transaminitis Hospital Course: The patient is a 50-year-old male admitted with acute epigastric abdominal pain and bloating, found to have?acute interstitial pancreatitis?with associated?transaminitis and hepatic steatosis. Initial evaluation revealed elevated lipase, leukocytosis, and elevated liver enzymes, with CT abdomen/pelvis confirming interstitial pancreatitis without necrosis or fluid collection. He was managed conservatively with aggressive IV fluids, bowel rest, analgesia, and antiemetics. Gastroenterology was consulted, and workup including RUQ ultrasound and hepatitis panel was unremarkable for biliary obstruction. The pancreatitis was felt to be most consistent with?alcohol-related etiology. Over the course of hospitalization, the patient demonstrated steady clinical improvement with resolution of abdominal pain and bloating, normalization of bowel function, and downtrending lipase and liver function tests. Diet was advanced gradually, and he is now?tolerating a regular low-fat diet without pain or nausea. GI cleared patient for discharge. He was counseled extensively on?strict alcohol cessation. Patient had multiple bowel movements prior to discharge. He was instructed to continue Miralax BID on discharge. The patient is medically stable for discharge home with plans for?follow-up with his PCP in 1 week and Gastroenterology in 2-3 weeks?for repeat labs and ongoing management. Status at Discharge Functional status at discharge: independent ambulation Overall status at discharge: patient is progressing back to baseline Time Spent with Patient Time attestation: Total time spent providing and/or coordinating discharge services: Time spent: Greater than 30 minutes Exam Narrative: General: NAD Eyes: EOMI ENT: neck supple Cardiovascular: Regular rate and rhythm Respiratory: Clear to auscultation, respirations even and unlabored on RA Gastrointestinal:mildly distended, no tenderness to palpation, bowel sounds active Genitourinary: no suprapubic tenderness Musculoskeletal: No edema Skin: warm, dry Neuro: Alert. Psych: Mood appropriate DS: Data Data Completed and Pending Completed studies during hospitalization: ITS Impressions Abdomen/Pelvis CT 08/26/25 09:31 IMPRESSION: 1. Acute interstitial pancreatitis. 2. Diffuse hepatic steatosis. Abdomen Ultrasound 08/26/25 12:22 IMPRESSION: 1. No acute findings. Labs on day of discharge: Labs from last 24 hours 08/27/25 08/26/25 05:34 11:17 WBC 10.9 H RBC 3.86 L Hgb 12.2 L Hct 37.3 L MCV 96.6 MCH 31.6 MCHC 32.7 RDW 13.4 Plt Count 130 L MPV 11.4 H Immature Gran % (Auto) 0.9 H Neut % (Auto) 81.5 H Lymph % (Auto) 8.2 L [place] % (Auto) 6.5 Eos % (Auto) 2.7 Baso % (Auto) 0.2 Lymph # (Auto) 0.89 L [place] # (Auto) 0.7 H Eos # (Auto) 0.3 Baso # (Auto) 0.0 Abs Immat Gran (auto) 0.10 H Absolute Neuts (auto) 8.9 H Absolute Nucleated RBC 0.000 Nucleated RBC % 0.0 % Immature Plt Fraction 7.5 Sodium 138 Potassium 3.6 Chloride 106 Carbon Dioxide 26 Anion Gap 6 BUN 2 L Creatinine 0.61 L Estim Creat Clear Calc 119 Estimated GFR > 60 Glucose 127 H Calcium 8.5 Total Bilirubin 1.6 H Direct Bilirubin 0.0 GGT 849 H AST 147 H ALT 166 H Alkaline Phosphatase 118 Total Protein 6.7 Albumin 3.3 L Lipase 282 Discharge Plan Discharge Attending physician on discharge: Nallely Smith Consulting providers: Jesica Gan; Taylor Carrillo Discharging Clinician: Jesica Gan Anticipated Discharge Date/Time: 08/27/25 13:42 Patient Disposition: Home Activity: as tolerated Diet: other - see discharge instructions Discharge Instructions: You were hospitalized for acute pancreatitis, which is inflammation of the pancreas. The pancreas is an organ in your abdomen that helps with digestion and blood sugar control. Your pancreatitis was likely caused by either a gallstone that passed through your bile duct or alcohol use. Your abdominal US did not show any current stones or liver issues. Your CT showed that you may have fatty liver disease. Further testing is needed by a GI specialist to confirm this diagnosis. Diet Instructions You may eat a regular diet, but you should follow these guidelines: * Start with small, frequent meals (5-6 times per day) * Choose low-fat foods - avoid fried foods, fatty meats, full-fat dairy products, and heavy sauces * Good food choices include: lean proteins (chicken, turkey, fish), whole grains, fruits, vegetables, and low-fat dairy * Avoid large, heavy meals * Stay well hydrated by drinking plenty of water throughout the day Alcohol You must completely avoid all alcohol.?Alcohol can trigger another episode of pancreatitis and cause serious complications. Even small amounts of alcohol can be harmful to your pancreas. If you need help with alcohol cessation, please discuss this with your primary care provider or wood sawyer. Medications * Resume all of your home medications as prescribed before your hospitalization * Hold all supplements?(vitamins, herbal products, etc.) until you discuss them with your wood sawyer at your follow-up appointment * Continue Tylenol as needed for pain. Follow-Up Appointments Primary Care Provider:?Schedule an appointment within 1 week of discharge. Arrange to have liver enzymes repeated. Gastroenterology (GI) Specialist:?Schedule an appointment within 2-3 weeks of discharge Your GI specialist will: * Determine the underlying cause of your pancreatitis * Discuss whether you need additional testing such as repeat ultrasound, MRI, or endoscopic ultrasound * Determine if you need gallbladder removal surgery (cholecystectomy) to prevent future episodes if gallstones are confirmed as the cause * Review your medications and supplements * Develop a long-term plan to prevent recurrence When to Return to the Emergency Department Seek immediate medical attention if you experience any of the following: * Severe abdominal pain, especially in the upper abdomen * Persistent nausea or vomiting that prevents you from keeping down food or liquids * Fever (temperature above 100.4?F or 38?C) * Yellowing of your skin or eyes (jaundice) * Severe weakness, dizziness, or confusion * Dark urine or pale/taty-colored stools * Difficulty breathing or chest pain * Inability to tolerate food or liquids by mouth Important Reminders * Pancreatitis can recur if the underlying cause is not addressed * If gallstones are confirmed as the cause, you will likely need gallbladder removal surgery to prevent future episodes * Complete alcohol abstinence is essential for your recovery and to prevent future episodes * Attend all follow-up appointments - they are critical for determining the cause and preventing complications * Call your doctor if you have any questions or concerns about your recovery Patient Instructions: Antibiotic Form Patient Language: Bhutanese Stand Alone Forms: General Discharge Information Follow-up/Referrals: PHYSICIAN NOT ON STAFF,NONSTAFF [Primary Care Provider] Referral Note: follow-up with PCP and GI Discharge Medications: New polyethylene glycol 3350 [Miralax] 17 gram/dose powder 17 g PO BID Qty: 119 0RF Continued zolpidem [Ambien] 5 mg tablet 5 mg PO HS allopurinol 300 mg tablet 300 mg PO DAILY finasteride 1 mg tablet 1 mg PO DAILY minoxidil 2.5 mg tablet 2.5 mg PO DAILY Date of admission: 08/26/25 10:51 Primary Care Provider: PHYSICIAN NOT ON STAFF,NONSTAFF Admitting Provider: Cindi Paredes Attending physician on admission: Cindi Paredes Condition: Stable
== END 2025-08-27 14:36 | disposition home or self-care (01) | DRG 440 ==
LOC: ANHED 08-26 02:28 → ANH3MEDSUR 08-26 03:55
PROVIDERS: Emergency Medicine; Nurse Practitioner Family; Admitting Provider Internal Medicine; Emergency Provider Student in an Organized Health Care Education/Training Program; Visit Provider Physician Assistant
DX: K85.80 Other acute pancreatitis without necrosis or infection (principal); K76.0 Fatty (change of) liver, not elsewhere classified; R74.01 Elevation of levels of liver transaminase levels; M10.9 Gout, unspecified; F10.90 Alcohol use, unspecified, uncomplicated
CPT/HCPCS: 36415; 74177; 76705; 80053; 80074; 80076; 81001; 82977; 83605; 83690; 83735; 85025; 85055; 93005; 96361; 96374; 96375; 99285; A9270; J2270; J2765; J7030; J7040; Q9967